=== PATIENT | male | born 1965 | race Two or more races ===

== ENCOUNTER 2024-08-19 15:05 | Emergency (ER) | payer MEDICAID ==
[~2024-08-19] VITALS: Ht 167.6 cm; Wt 84.0 kg
[~2024-08-19 15:05] MED LIST: LEVO750T68 MT; METR-167 MT
[2024-08-19 15:14] VITALS: O2SAT 99
[2024-08-19] MEDS ORDERED: IBUPROFEN 600MG TABLET PO STA (15:26)
[2024-08-19 15:41] LABS: BASOPHILS % 0.7 % (0.0-2.0); EOSINOPHILS % 2.1 % (0.0-5.0); HEMOGLOBIN. 14.9 g/dL (14.0-18.0); LYMPHOCYTES % 25.3 % (20.0-50.0); MEAN CORPUSCULAR HEMOGLOBIN 33.1 pg (28.0-32.0); MEAN CORPUSCULAR HGB CONC 35.5 g/dL (31.0-37.0); MEAN CORPUSCULAR VOLUME 93.3 fL (80.0-94.0); MEAN PLATELET VOLUME 9.6 fl (7.4-10.4); MONOCYTES % 11.1 % (2.0-8.0); NEUTROPHILS % 60.8 % (40.0-76.0); PLATELET 186 x1000/uL (130-400)
[2024-08-19 15:49] LABS: CHLORIDE 104 mEq/L (98-107); POTASSIUM 3.8 mEq/L (3.5-5.1); SODIUM 138 mEq/L (136-145)
[2024-08-19 15:50] LABS: CALCIUM 9.2 mg/dL (8.7-10.4); CARBON DIOXIDE 26 mEq/L (21-32)
[2024-08-19 15:55] LABS: CREATININE 1.1 mg/dL (0.6-1.3); GLUCOSE 111 mg/dL (70-105); UREA NITROGEN BLOOD 12 mg/dL (9-23)
[2024-08-19] MEDS ORDERED: AMOX1TAB16 MT (16:45)
[2024-08-19] MEDS: IBUPROFEN 600MG TABLET PO NR (17:21)
[2024-08-19 17:24] VITALS: BP 136/57; PULSE 85; RESP 18; TEMP 36.66960; O2SAT 100
== END 2024-08-19 17:25 | disposition home or self-care (01) ==
LOC: ER 15:05
DX: K57.32 Diverticulitis of large intestine without perforation or abscess without bleeding (principal); Z90.49 Acquired absence of other specified parts of digestive tract
CPT/HCPCS: 36415; 74176; 80048; 85025; 99284; 99291